=== PATIENT | female | born 1970 | race Caucasian/White ===

== ENCOUNTER 2018-06-19 05:59 | Emergency (ER) | payer BC ==
[~2018-06-19] VITALS: Ht 167.6 cm; Wt 85.7 kg
[~2018-06-19 05:59] MED LIST: AMOX500 PO; AZIT250 PO; CEPH500 PO; CODACE30 PO; Cipro500 MG PO; IBUP800 PO; NEOCOLOTSU OT; OXYACE5T PO; PENVK500 PO; Percocet 5-3251 EACH PO; Pyridium100 MG PO; Pyridium200 MG PO; VENLAFAXINE; VITAMINS
[2018-06-19] MEDS ORDERED: HYOS.125 SL (06:25)
[2018-06-19] MEDS ORDERED: MONT10T PO (06:26)
[2018-06-19] MEDS ORDERED: TOCO1000 (06:26)
[2018-06-19] MEDS ORDERED: Garlic1 EAC1 (06:26)
[2018-06-19] MEDS ORDERED: VITAMIN D5000 UNI1 (06:26)
[2018-06-19] MEDS ORDERED: Oyster Shell C500 MG (06:26)
[2018-06-19] MEDS ORDERED: IRON18 MG (06:27)
[2018-06-19] MEDS ORDERED: MAGNESIUM100 MG (06:27)
[2018-06-19] MEDS ORDERED: VITAMIN B122500 MCG (06:27)
[2018-06-19 06:59] LABS: BASOPHILS ABSOLUTE AUTO 0.03 K/mm3 (0.00-0.23); BASOPHILS PERCENT AUTO 1 % (0-2); EOSINOPHILS ABSOLUTE AUTO 0.03 K/mm3 (0.00-0.68); EOSINOPHILS PERCENT AUTO 1 % (0-6); Hematocrit 40.5 % (33.0-51.0); Hemoglobin 13.8 g/dL (11.5-16.0); IMMATURE GRAN ABSOLUTE AUTO 0.01 K/mm3 (0.00-0.10); IMMATURE GRAN PERCENT AUTO 0 % (0-1); LYMPHOCYTES ABSOLUTE AUTO 1.15 K/mm3 (0.84-5.20); LYMPHOCYTES PERCENT AUTO 27 % (21-46); MONOCYTES ABSOLUTE AUTO 0.39 K/mm3 (0.16-1.47); MONOCYTES PERCENT AUTO 9 % (4-13); Mean Corpuscular HGB 33.5 pg (26.0-34.0); Mean Corpuscular HGB Conc 34.1 g/dL (31.5-36.5); Mean Corpuscular Volume 98 fL (80-100); Mean Platelet Volume 10.1 fL (9.1-12.4); NEUTROPHILS ABSOLUTE AUTO 2.72 K/mm3 (1.96-9.15); NEUTROPHILS PERCENT AUTO 63 % (41-73); Platelet Count 262 K/mm3 (150-400); RDW Coefficient Variation 12.5 % (11.7-14.2); RDW Standard Deviation 45.3 fL (35.1-46.3); Red Blood Cell Count 4.12 M/mm3 (3.80-5.20); White Blood Cell Count 4.33 K/mm3 (4.00-11.30)
[2018-06-19 07:20] LABS: Alanine Aminotransfer (ALT/SGP 34 U/L (12-78); Albumin, Blood 3.9 g/dL (3.4-5.0); Albumin/Globulin Ratio 1.3 (0.8-1.8); Alk Phos 79 U/L (50-136); Anion Gap 8 mmol/L (6-16); Aspartate Aminotrans (AST/SGOT 20 U/L (12-37); Bilirubin, Total 0.5 mg/dL (0.1-1.0); Blood Urea Nitrogen 13 mg/dL (8-24); CO2, Blood 28 mmol/L (21-32); Chloride, Blood 110 mmol/L (98-108); Creatinine, Blood 0.62 mg/dL (0.40-1.00); Globulin, Blood 3.1 g/dL (2.2-4.0); Glomerular Filtration Rate >60 (60-); Glucose, Blood 89 mg/dL (70-99); Potassium, Blood 3.5 mmol/L (3.5-5.5); Sodium, Blood 146 mmol/L (136-145)
[2018-06-19] MEDS ORDERED: ONDA4ODT MM (07:41)
== END 2018-06-19 07:57 | disposition home or self-care (01) ==
LOC: ER 05:59
PROVIDERS: Emergency Medicine
DX: R10.9 Unspecified abdominal pain (principal); R10.816 Epigastric abdominal tenderness; R11.0 Nausea; Z88.5 Allergy status to narcotic agent; Z88.6 Allergy status to analgesic agent; Z79.899 Other long term (current) drug therapy
CPT/HCPCS: 36415; 74022; 80053; 83690; 85025; 99284-25

== ENCOUNTER 2019-01-29 17:04 | Emergency (ER) | payer BC ==
[~2019-01-29] VITALS: Ht 170.2 cm; Wt 87.5 kg
[~2019-01-29 17:04] MED LIST changes: +Garlic1 EAC1; +HYOS.125 SL; +IRON18 MG; +MAGNESIUM100 MG; +MONT10T PO; +ONDA4ODT MM; +Oyster Shell C500 MG; +TOCO1000; +VITAMIN B122500 MCG; +VITAMIN D5000 UNI1
[2019-01-29 17:32] LABS: BASOPHILS ABSOLUTE AUTO 0.03 K/mm3 (0.00-0.23); BASOPHILS PERCENT AUTO 0 % (0-2); EOSINOPHILS ABSOLUTE AUTO 0.01 K/mm3 (0.00-0.68); EOSINOPHILS PERCENT AUTO 0 % (0-6); Hematocrit 40.4 % (33.0-51.0); Hemoglobin 13.8 g/dL (11.5-16.0); IMMATURE GRAN ABSOLUTE AUTO 0.02 K/mm3 (0.00-0.10); IMMATURE GRAN PERCENT AUTO 0 % (0-1); LYMPHOCYTES ABSOLUTE AUTO 1.79 K/mm3 (0.84-5.20); LYMPHOCYTES PERCENT AUTO 23 % (21-46); MONOCYTES ABSOLUTE AUTO 0.37 K/mm3 (0.16-1.47); MONOCYTES PERCENT AUTO 5 % (4-13); Mean Corpuscular HGB 33.2 pg (26.0-34.0); Mean Corpuscular HGB Conc 34.2 g/dL (31.5-36.5); Mean Corpuscular Volume 97 fL (80-100); Mean Platelet Volume 9.9 fL (9.1-12.4); NEUTROPHILS ABSOLUTE AUTO 5.67 K/mm3 (1.96-9.15); NEUTROPHILS PERCENT AUTO 72 % (41-73); Platelet Count 279 K/mm3 (150-400); RDW Coefficient Variation 12.7 % (11.7-14.2); RDW Standard Deviation 45.6 fL (35.1-46.3); Red Blood Cell Count 4.16 M/mm3 (3.80-5.20); White Blood Cell Count 7.89 K/mm3 (4.00-11.30)
[2019-01-29 18:05] LABS: Alanine Aminotransfer (ALT/SGP 47 U/L (12-78); Albumin, Blood 4.4 g/dL (3.4-5.0); Albumin/Globulin Ratio 1.3 (0.8-1.8); Alk Phos 104 U/L (50-136); Anion Gap 8 mmol/L (6-16); Aspartate Aminotrans (AST/SGOT 22 U/L (12-37); Bilirubin, Total 0.4 mg/dL (0.1-1.0); Blood Urea Nitrogen 25 mg/dL (8-24); Bun/Creatinine Ratio 41.1 (12.0-20.0); CO2, Blood 25 mmol/L (21-32); Calcium, Blood 9.4 mg/dL (8.5-10.1); Chloride, Blood 107 mmol/L (98-108); Creatinine, Blood 0.61 mg/dL (0.40-1.00); Globulin, Blood 3.3 g/dL (2.2-4.0); Glomerular Filtration Rate >60 (60-); Glucose, Blood 110 mg/dL (70-99); Potassium, Blood 3.7 mmol/L (3.5-5.5); Sodium, Blood 140 mmol/L (136-145); Total Protein, Blood 7.7 g/dL (6.4-8.2)
[2019-01-29 18:06] LABS: Troponin I <0.015 ng/mL (0.000-0.040)
== END 2019-01-29 21:58 | disposition home or self-care (01) ==
LOC: ER 17:04
PROVIDERS: Physician Assistant
DX: R07.9 Chest pain, unspecified (principal); I10 Essential (primary) hypertension; Z88.5 Allergy status to narcotic agent; Z88.6 Allergy status to analgesic agent; Z79.899 Other long term (current) drug therapy
CPT/HCPCS: 36415; 71046; 80053; 84484; 85025; 93005; 93010; 99285-25

== ENCOUNTER 2020-03-29 19:24 | Emergency (ER) | payer OTHER, BC ==
[~2020-03-29] VITALS: Ht 170.2 cm; Wt 88.9 kg
[2020-03-29 19:51] LABS: Source, Urine Clean Catch
[2020-03-29 19:57] LABS: Appearance, Urine Cloudy (Clear); Bilirubin, Urine Neg (Neg); Blood, Urine 5+ (Neg); Color, Urine Amber (P-Yellow); Glucose Qualitative, Urine Neg (Neg); Ketones, Urine Neg (Neg); Leukocyte Esterase, Urine 3+ (Neg); Nitrite, Urine Neg (Neg); Protein, Urine 3+ (Neg); Specific Gravity, Urine 1.015 (1.003-1.022); Urobilinogen, Urine NORM (Normal); pH, Urine 6.5 (5.0-8.0)
[2020-03-29 20:16] LABS: Bacteria Mod /hpf; Red Blood Cells, Urine TNTC /hpf (0-2); Squamous Epithelial Cells Not Seen /hpf (Few)
[2020-03-29 20:17] LABS: White Blood Cells, Urine 50-100 /hpf (0-5)
[2020-03-29] MEDS ORDERED: Pyridium200 MG PO (20:58)
[2020-03-29] MEDS ORDERED: CEFP200 PO (20:58)
== END 2020-03-29 21:07 | disposition home or self-care (01) ==
LOC: ER 19:24
PROVIDERS: Emergency Medicine
DX: N39.0 Urinary tract infection, site not specified (principal); Z88.5 Allergy status to narcotic agent; Z88.6 Allergy status to analgesic agent; Z79.899 Other long term (current) drug therapy
CPT/HCPCS: 81001; 81025; 87077; 87086; 87186; 99283; A9270

== ENCOUNTER 2020-07-25 08:31 | Emergency (ER) | payer OTHER, BC ==
[~2020-07-25] VITALS: Ht 167.6 cm; Wt 87.5 kg
[~2020-07-25 08:31] MED LIST changes: +CEFP200 PO
[2020-07-25 10:13] LABS: Source, Urine Clean Catch
[2020-07-25 10:17] LABS: Appearance, Urine Clear (Clear); Bilirubin, Urine Neg (Neg); Blood, Urine Neg (Neg); Color, Urine Yellow (P-Yellow); Glucose Qualitative, Urine Neg (Neg); Ketones, Urine Neg (Neg); Leukocyte Esterase, Urine Neg (Neg); Nitrite, Urine Neg (Neg); Protein, Urine Neg (Neg); Urobilinogen, Urine NORM (Normal)
[2020-07-25 10:17] LABS: BASOPHILS ABSOLUTE AUTO 0.02 K/mm3 (0.00-0.23); BASOPHILS PERCENT AUTO 1 % (0-2); EOSINOPHILS ABSOLUTE AUTO 0.02 K/mm3 (0.00-0.68); EOSINOPHILS PERCENT AUTO 1 % (0-6); Hematocrit 39.1 % (33.0-51.0); Hemoglobin 13.5 g/dL (11.5-16.0); IMMATURE GRAN ABSOLUTE AUTO 0.01 K/mm3 (0.00-0.10); IMMATURE GRAN PERCENT AUTO 0 % (0-1); LYMPHOCYTES ABSOLUTE AUTO 1.06 K/mm3 (0.84-5.20); LYMPHOCYTES PERCENT AUTO 25 % (21-46); MONOCYTES ABSOLUTE AUTO 0.37 K/mm3 (0.16-1.47); MONOCYTES PERCENT AUTO 9 % (4-13); Mean Corpuscular HGB 33.1 pg (26.0-34.0); Mean Corpuscular HGB Conc 34.5 g/dL (31.5-36.5); Mean Corpuscular Volume 96 fL (80-100); Mean Platelet Volume 10.1 fL (9.1-12.4); NEUTROPHILS ABSOLUTE AUTO 2.73 K/mm3 (1.96-9.15); NEUTROPHILS PERCENT AUTO 65 % (41-73); Platelet Count 235 K/mm3 (150-400); RDW Coefficient Variation 12.5 % (11.7-14.2); RDW Standard Deviation 44.5 fL (35.1-46.3); Red Blood Cell Count 4.08 M/mm3 (3.80-5.20); White Blood Cell Count 4.21 K/mm3 (4.00-11.30)
[2020-07-25 10:35] LABS: Alanine Aminotransfer (ALT/SGP 32 U/L (12-78); Albumin/Globulin Ratio 1.2 (0.8-1.8); Alk Phos 103 U/L (50-136); Anion Gap 5 mmol/L (6-16); Aspartate Aminotrans (AST/SGOT 28 U/L (12-37); Bilirubin, Total 0.6 mg/dL (0.1-1.0); Blood Urea Nitrogen 16 mg/dL (8-24); Bun/Creatinine Ratio 24.7 (12.0-20.0); CO2, Blood 26 mmol/L (21-32); Chloride, Blood 108 mmol/L (98-108); Creatinine, Blood 0.65 mg/dL (0.40-1.00); Globulin, Blood 3.2 g/dL (2.2-4.0); Glomerular Filtration Rate >60 (60-); Glucose, Blood 92 mg/dL (70-99); Potassium, Blood 4.3 mmol/L (3.5-5.5); Sodium, Blood 139 mmol/L (136-145); Total Protein, Blood 7.2 g/dL (6.4-8.2)
[2020-07-25] MEDS ORDERED: SUCR1 PO (11:04)
== END 2020-07-25 11:13 | disposition home or self-care (01) ==
LOC: ER 08:31
PROVIDERS: Emergency Medicine
DX: K29.70 Gastritis, unspecified, without bleeding (principal); I10 Essential (primary) hypertension; Z88.5 Allergy status to narcotic agent; Z88.6 Allergy status to analgesic agent; Z79.899 Other long term (current) drug therapy
CPT/HCPCS: 36415; 80053; 81003; 83690; 85025; 99284

== ENCOUNTER 2021-11-03 04:08 | Emergency (ER) | payer OTHER, BC ==
[~2021-11-03] VITALS: Ht 167.6 cm; Wt 88.9 kg
[~2021-11-03 04:08] MED LIST changes: +SUCR1 PO
[2021-11-03 05:15] LABS: Source, Urine Clean Catch
[2021-11-03 05:33] LABS: Appearance, Urine Hazy (Clear); Bilirubin, Urine Neg (Neg); Blood, Urine 5+ (Neg); Color, Urine Red (P-Yellow); Glucose Qualitative, Urine Neg (Neg); Ketones, Urine 1+ (Neg); Leukocyte Esterase, Urine 3+ (Neg); Nitrite, Urine Neg (Neg); Protein, Urine 3+ (Neg); Urobilinogen, Urine NORM (Normal); pH, Urine 6.5 (5.0-8.0)
[2021-11-03 05:50] LABS: Bacteria Mod /hpf; Red Blood Cells, Urine TNTC /hpf (0-2); Squamous Epithelial Cells Few /hpf (Few); White Blood Cells, Urine TNTC /hpf (0-5)
[2021-11-03] MEDS ORDERED: Pyridium100 MG PO (07:00)
[2021-11-03] MEDS ORDERED: Bactrim Ds Tab1 EACH PO (07:00)
== END 2021-11-03 07:11 | disposition home or self-care (01) ==
LOC: ER 04:08
PROVIDERS: Emergency Medicine
DX: N39.0 Urinary tract infection, site not specified (principal); I10 Essential (primary) hypertension; Z88.6 Allergy status to analgesic agent; Z88.5 Allergy status to narcotic agent; Z79.899 Other long term (current) drug therapy
CPT/HCPCS: 81001; A9270

== ENCOUNTER 2021-11-14 06:57 | Emergency (ER) | payer OTHER, BC ==
[~2021-11-14] VITALS: Ht 167.6 cm; Wt 88.9 kg
[~2021-11-14 06:57] MED LIST changes: +Bactrim Ds Tab1 EACH PO
[2021-11-14 07:58] LABS: Source, Urine Clean Catch
[2021-11-14 08:11] LABS: Appearance, Urine Hazy (Clear); Bilirubin, Urine Neg (Neg); Blood, Urine 5+ (Neg); Color, Urine Red (P-Yellow); Glucose Qualitative, Urine Neg (Neg); Ketones, Urine Neg (Neg); Leukocyte Esterase, Urine 3+ (Neg); Nitrite, Urine Neg (Neg); Protein, Urine 3+ (Neg); Urobilinogen, Urine NORM (Normal)
[2021-11-14 08:37] LABS: Squamous Epithelial Cells Rare /hpf (Few)
[2021-11-14 08:38] LABS: White Blood Cells, Urine 50-100 /hpf (0-5)
[2021-11-14 08:39] LABS: Bacteria Many /hpf; Red Blood Cells, Urine 25-50 /hpf (0-2)
[2021-11-14] MEDS ORDERED: CEFD300 PO (09:18)
[2021-11-14] MEDS ORDERED: Pyridium100 MG PO (09:18)
== END 2021-11-14 09:36 | disposition home or self-care (01) ==
LOC: ER 06:57
PROVIDERS: Student in an Organized Health Care Education/Training Program
DX: N30.90 Cystitis, unspecified without hematuria (principal); I10 Essential (primary) hypertension; Z88.5 Allergy status to narcotic agent; Z88.6 Allergy status to analgesic agent; Z79.899 Other long term (current) drug therapy
CPT/HCPCS: 74176; 81001; A9270

== ENCOUNTER → 2022-07-07 | Outpatient (CLI) | payer OTHER, BC ==
[~2022-07-07] MED LIST changes: +CEFD300 PO; +ONDA4 PO
== END ==
LOC: LAB SHORT 12:26
DX: N39.0 Urinary tract infection, site not specified (principal)
CPT/HCPCS: 87086

== ENCOUNTER 2024-01-08 08:48 | Day surgery (SDC) | payer OTHER, BC ==
[~2024-01-08] VITALS: Ht 167.6 cm; Wt 88.6 kg
[~2024-01-08 08:48] MED LIST changes: +LORA10ER PO; +ONDA4ODT PO
[2024-01-08] MEDS ORDERED: propofoL 40 ML IV ONE (09:13)
[2024-01-08] MEDS ORDERED: Lactated Ringer's 1,000 ML IV ONE ×2 (09:13→10:09)
[2024-01-08] MEDS ORDERED: ACET500 (09:16)
[2024-01-08] MEDS ORDERED: FISH OIL 1,2001 EAC4 PO (09:17)
[2024-01-08] MEDS ORDERED: ASCO500 PO (09:17)
[2024-01-08] MEDS ORDERED: MERIBIN5 MG PO (09:17)
[2024-01-08] MEDS ORDERED: B-121000 MC3 PO (09:18)
[2024-01-08] MEDS ORDERED: ERGO400 PO (09:19)
[2024-01-08] MEDS ORDERED: SUPHEDRINE PO (09:20)
[2024-01-08] MEDS ORDERED: propofoL 20 ML IV ONE (11:10)
[2024-01-08 11:29] VITALS: BP 118/66
== END 2024-01-08 11:49 | disposition home or self-care (01) ==
LOC: ORSCSDS 08:48
PROVIDERS: Internal Medicine Gastroenterology
PROC: 0DJD8ZZ Inspection of Lower Intestinal Tract, Via Natural or Artificial Opening Endoscopic (ICD-10-PCS; principal; 2024-01-08 10:15)
DX: Z12.11 Encounter for screening for malignant neoplasm of colon (principal); Z83.719 Family history of colon polyps, unspecified
CPT/HCPCS: J2704; J7120